=== PATIENT | female | born 1995 | race African-American/Black ===

== ENCOUNTER 2020-10-12 16:46 | Emergency (ER) | payer OTHER ==
[~2020-10-12] VITALS: Ht 167.6 cm; Wt 92.5 kg
[~2020-10-12 16:46] MED LIST: BACTRIM DS TAB1 EACH PO; FLUCONAZOLE150 MG PO; IBUPROFEN800 MG PO; PROBIOTIC1 EAC2
== END 2020-10-12 21:27 | disposition home or self-care (01) ==
LOC: ER 16:46
DX: S00.83XA Contusion of other part of head, initial encounter (principal); S80.02XA Contusion of left knee, initial encounter; S80.12XA Contusion of left lower leg, initial encounter; M12.562 Traumatic arthropathy, left knee; M54.2 Cervicalgia; V49.88XA Car occupant (driver) (passenger) injured in other specified transport accidents, initial encounter; Y93.89 Activity, other specified; Y92.413 State road as the place of occurrence of the external cause; Y99.8 Other external cause status

== ENCOUNTER 2021-09-10 01:20 | Emergency (ER) | payer OTHER ==
[~2021-09-10] VITALS: Ht 167.6 cm; Wt 90.7 kg
[2021-09-10] MEDS ORDERED: ACETAMINOPHEN650 M2 PO (06:02)
[2021-09-10] MEDS ORDERED: PEPCID AC20 MG PO (06:02)
== END 2021-09-10 06:12 | disposition home or self-care (01) ==
LOC: ER 01:20
DX: R10.2 Pelvic and perineal pain (principal); K76.0 Fatty (change of) liver, not elsewhere classified; K29.70 Gastritis, unspecified, without bleeding